=== PATIENT | male | born 1935 | race Caucasian/White ===

== ENCOUNTER → 2020-09-19 | Outpatient (CLI) | payer MEDICARE ==
--- NOTE | 2020-09-19 15:52 | Diagnostic Imaging Report ---
PROCEDURE: MR imaging of the brain without contrast. TECHNIQUE: Multiplanar, multisequence MR imaging of the brain was performed without contrast. INDICATION: Slurred speech. Left-sided paralysis. COMPARISON: None. FINDINGS: Advanced generalized cerebral and cerebellar parenchymal volume loss. Moderate to advanced nonspecific T2 hyperintensities in the supratentorial white matter. Small lacunar infarct in the deep white matter of the right frontal lobe. No restricted water diffusion. No hemosiderin deposition or evidence of intracranial hemorrhage. Normal morphology including the major midline structures, sella, posterior fossa and cerebellar pontine angle. Postoperative changes in the right globe. Normal intracranial flow voids. No hydrocephalus or extra-axial fluid collections. The paranasal sinuses and mastoids appear clear. Normal bone marrow signal. IMPRESSION: 1. No acute intracranial MRI findings. Specifically, no evidence of acute infarction. 2. 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 3. 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 Dictated by: Dictated on workstation # [id number]
== END ==
LOC: RAD 14:20
PROVIDERS: ATTEND Nurse Practitioner Family
DX: I69.354 Hemiplegia and hemiparesis following cerebral infarction affecting left non-dominant side (principal); R93.0 Abnormal findings on diagnostic imaging of skull and head, not elsewhere classified
CPT/HCPCS: 70551

== ENCOUNTER 2022-04-17 07:53 | Emergency (ER) | payer MEDICARE ==
[~2022-04-17] VITALS: Ht 177 cm; Wt 95.0 kg
[2022-04-17] MEDS ORDERED: LACTATED RINGERS 1,000 ML IV STA (08:14)
--- NOTE | 2022-04-17 08:14 | ED Abdominal Pain ---
General Chief Complaint: Abdominal/GI Problems Stated Complaint: ABD PAIN Nursing Triage Note: Patient has been brought to ER by EMS with cc of lower right abd/groin pain, he has a lump in his right groin that has been there for a long time. This morning the pain is worse. He called EMS for transport to ER for evaluation. Source of Information: Patient, EMS, Family Exam Limitations: No Limitations History of Present Illness Date Seen by Provider: April 17, 2022 Time Seen by Provider: 07:56 Initial Comments 86-year-old male with past medical history of memory impairment and prior inguinal hernia on the left coming in via EMS from home due to right inguinal hernia with increasing pain. The left was repaired years ago by Dr. Farnsworth at a [facility]. His spouse recalls this 1 on the right been present for over a year. He followed up with Dr. Farnsworth who said he does not need surgery unless it begins hurting him. Intermittently its cause mild pain, but he woke up this morning with more severe pain, constant, aching in his lower abdomen. No nausea or vomiting associated with it. Him or his cannot recall the last time he had a bowel movement. He does not believe he is passing flatus, but he is unsure. He last ate last night. He has not had anything for pain as of yet. He is otherwise denying any chest pain, shortness of breath, diarrhea, weakness, numbness, dysuria, rash, or any other concerns. Allergies and Home Medications Allergies Coded Allergies: gabapentin (Verified Allergy, Unknown, 04/17/22) Patient Home Medication List Home Medication List Reviewed: Yes Review of Systems Review of Systems Constitutional: No chills, No fever EENTM: No Blurred Vision Respiratory: Denies Cough Cardiovascular: Denies Chest Pain Gastrointestinal: Abdominal Pain; Denies Diarrhea, Denies Nausea Genitourinary: No Symptoms Reported Musculoskeletal: no symptoms reported Skin: no symptoms reported Psychiatric/Neurological: No Symptoms Reported Endocrine: No Symptoms Reported Hematologic/Lymphatic: No Symptoms Reported All Other Systems Reviewed Negative Unless Noted: Yes Past Qdrmamb-Zxwdgi-Wnauqu Hx Patient Social History Tobacco Use?: No Smoking Status: Former Smoker Use of E-Cig and/or Vaping dev: No Substance use?: No Alcohol Use?: No Past Medical History Surgeries: Yes (hernia repair on the left inguinal) Physical Exam Vital Signs Vital Signs - First Documented 04/17/22 08:00 Temp 35.9 Pulse 70 Resp 18 B/P (MAP) 182/111 (134) Pulse Ox 99 Capillary Refill : Height/Weight/BMI Height: '" Weight: lbs. oz. kg; 30.00 BMI Method: General Appearance: WD/WN, no apparent distress HEENT: PERRL/EOMI, normal ENT inspection, pharynx normal Neck: non-tender, full range of motion, supple, normal inspection Respiratory: chest non-tender, lungs clear, normal breath sounds, no respiratory distress, no accessory muscle use Cardiovascular: regular rate, rhythm, no edema, no murmur Gastrointestinal: normal bowel sounds; No distended, No guarding, No rebound; tenderness (lower abdomen), hernia (R inguinal, incarcerated but does not appear to be strangulated with normal skin color) Extremities: normal range of motion, non-tender, normal inspection, no pedal edema, no calf tenderness, normal capillary refill Back: normal inspection, no CVA tenderness, no vertebral tenderness Neurologic/Psychiatric: no motor/sensory deficits, alert, normal mood/affect, disoriented x 3 (to time) Skin: normal color, warm/dry Lymphatic: no adenopathy Focused Exam Lactate Level 04/17/22 08:11: Lactic Acid Level 1.51 Lactic Acid Level Laboratory Tests Test 04/17/22 08:11 Lactic Acid Level 1.51 MMOL/L (0.50-2.00) Progress/Results/Core Measures Results/Orders Lab Results Laboratory Tests Test 04/17/22 08:11 Range/Units White Blood Count 7.9 4.3-11.0 10^3/uL Red Blood Count 5.14 4.30-5.52 10^6/uL Hemoglobin 16.0 13.3-17.7 g/dL Hematocrit 45 40-54 % Mean Corpuscular Volume 88 80-99 fL Mean Corpuscular Hemoglobin 31 25-34 pg Mean Corpuscular Hemoglobin Concent 35 32-36 g/dL Red Cell Distribution Width 12.3 10.0-14.5 % Platelet Count 193 130-400 10^3/uL Mean Platelet Volume 10.1 9.0-12.2 fL Immature Granulocyte % (Auto) 0 % Neutrophils (%) (Auto) 37 L 42-75 % Lymphocytes (%) (Auto) 53 H 12-44 % Monocytes (%) (Auto) 7 0-12 % Eosinophils (%) (Auto) 2 0-10 % Basophils (%) (Auto) 0 0-10 % Neutrophils # (Auto) 2.9 1.8-7.8 10^3/uL Lymphocytes # (Auto) 4.2 H 1.0-4.0 10^3/uL Monocytes # (Auto) 0.6 0.0-1.0 10^3/uL Eosinophils # (Auto) 0.2 0.0-0.3 10^3/uL Basophils # (Auto) 0.0 0.0-0.1 10^3/uL Immature Granulocyte # (Auto) 0.0 0.0-0.1 10^3/uL Sodium Level 136 135-145 MMOL/L Potassium Level 4.2 3.6-5.0 MMOL/L Chloride Level 103 98-107 MMOL/L Carbon Dioxide Level 23 21-32 MMOL/L Anion Gap 10 5-14 MMOL/L Blood Urea Nitrogen 17 7-18 MG/DL Creatinine 1.06 0.60-1.30 MG/DL Estimat Glomerular Filtration Rate 68 BUN/Creatinine Ratio 16 Glucose Level 99 70-105 MG/DL Lactic Acid Level 1.51 0.50-2.00 MMOL/L Calcium Level 9.2 8.5-10.1 MG/DL Corrected Calcium 9.3 8.5-10.1 MG/DL Total Bilirubin 1.3 H 0.1-1.0 MG/DL Aspartate Amino Transf (AST/SGOT) 32 5-34 U/L Alanine Aminotransferase (ALT/SGPT) 34 0-55 U/L Alkaline Phosphatase 99 40-136 U/L Total Protein 7.7 6.4-8.2 GM/DL Albumin 3.9 3.2-4.5 GM/DL Lipase 22 8-78 U/L My Orders Orders - ANSELMO HORTON MD Cbc With Automated Diff (04/17/22 08:14) Comprehensive Metabolic Panel (04/17/22 08:14) Lactic Acid Analyzer (04/17/22 08:14) Lipase (04/17/22 08:14) Ua Culture If Indicated (04/17/22 08:14) Ct Abdomen/Pelvis W (04/17/22 08:14) Lactated Ringers (Lr 1000 Ml Iv Solution (04/17/22 08:14) Ondansetron Injection (Zofran Injectio (04/17/22 08:15) Iohexol Injection (Omnipaque 350 Mg/Ml 1 (04/17/22 08:45) Received Contrast (Hold Metformin- Contr (04/17/22 08:45) Sodium Chloride Flush (Catheter Flush Sy (04/17/22 08:45) Ns (Ivpb) (Sodium Chloride 0.9% Ivpb Bag (04/17/22 08:45) Medications Given in ED Current Medications Medications Dose Ordered Sig/Shy Route Start Time Stop Time Status Last Admin Dose Admin Iohexol 100 ml ONCE ONCE IV 04/17/22 08:45 04/17/22 08:46 DC 04/17/22 09:20 100 ML Ondansetron HCl 4 mg ONCE ONCE IVP 04/17/22 08:15 04/17/22 08:17 DC 04/17/22 08:27 4 MG Sodium Chloride 10 ml NEEDED PRN IV 04/17/22 08:45 04/17/22 09:20 10 ML Sodium Chloride 100 ml ONCE ONCE IV 04/17/22 08:45 04/17/22 08:46 DC 04/17/22 09:20 100 ML Vital Signs/I&O 04/17/22 08:00 Temp 35.9 Pulse 70 Resp 18 B/P (MAP) 182/111 (134) Pulse Ox 99 Blood Pressure Mean: 134 Progress Progress Note : Progress Note 86-year-old male with above history coming in due to right lower abdominal pain. Physical exam with an inguinal hernia that is incarcerated on exam. Attempted to reduce it with no success. ABCs were intact and vital stable on presentation. IV was placed and basic labs reassuring including a normal white blood cell count, normal creatinine, normal lactic acid, and normal LFTs. CT abdomen pelvis ordered to assess for obstruction given his lack of flatus and bowel movements recently. This was concerning for at least a partial bowel obstruction. I discussed this with the family, and they wanted me to discuss the case with his surgeon, Dr. Farnsworth. I contacted him at [facility], and he accepted him for transfer for further evaluation and management. Departure Impression Primary Impression: Partial small bowel obstruction Additional Impression: Incarcerated hernia Disposition: XF SHT-TRM HOSP Condition: Stable Admissions Decision to Admit/Date: April 17, 2022 Time/Decision to Admit Time: 09:45 Transfer Transfer Reason: Patient preference (continuity of care with his surgeon that has done prior hernia repair) Time Spoke to Accepting Phy: 09:45 Transfer Progress Notes Patient accepted by Dr. Farnsworth for ER to ER transfer where he will likely go to the OR Transfer Time: 10:10 Transfer Facility: [facility] Method of Transfer: Private Vehicle Departure-Patient Inst. Referrals: NO,LOCAL PHYSICIAN (PCP/Family) Primary Care Physician ANSELMO HORTON MD April 17, 2022 08:14
[2022-04-17] MEDS ORDERED: ONDANSETRON 4 MG/2 ML (SDV) Z0FRAN IVP ONE (08:15)
[2022-04-17 08:22] LABS: BASOPHILS % (AUTO) 0 % (0-10); EOSINOPHILS # (AUTO) 0.2 10^3/uL (0.0-0.3); EOSINOPHILS % (AUTO) 2 % (0-10); HEMATOCRIT 45 % (40-54); LYMPHOCYTES # (AUTO) 4.2 10^3/uL (1.0-4.0); LYMPHOCYTES % (AUTO) 53 % (12-44); MEAN CORPUSCULAR HEMOGLOBIN 31 pg (25-34); MEAN CORPUSCULAR HGB CONC 35 g/dL (32-36); MEAN CORPUSCULAR VOLUME 88 fL (80-99); MEAN PLATELET VOLUME 10.1 fL (9.0-12.2); MONOCYTES # (AUTO) 0.6 10^3/uL (0.0-1.0); MONOCYTES % (AUTO) 7 % (0-12); NEUTROPHILS # (AUTO) 2.9 10^3/uL (1.8-7.8); NEUTROPHILS % (AUTO) 37 % (42-75); PLATELET COUNT 193 10^3/uL (130-400); WHITE BLOOD COUNT 7.9 10^3/uL (4.3-11.0)
[2022-04-17 08:40] LABS: CREATININE SERUM 1.06 MG/DL (0.60-1.30); POTASSIUM 4.2 MMOL/L (3.6-5.0)
[2022-04-17 08:41] LABS: ALBUMIN 3.9 GM/DL (3.2-4.5); BILIRUBIN,TOTAL 1.3 MG/DL (0.1-1.0); CALCIUM 9.2 MG/DL (8.5-10.1); TOTAL PROTEIN 7.7 GM/DL (6.4-8.2)
[2022-04-17] MEDS ORDERED: NS 100 ML (IVPB) BAG IV ONE (08:45)
[2022-04-17] MEDS ORDERED: HOLD METFORMIN - RECEIVED CONTRAST 20 ML VIAL IV SCH (08:45)
[2022-04-17] MEDS ORDERED: CATHETER FLUSH 10 ML SYR IV PRN (08:45)
[2022-04-17] MEDS ORDERED: IOHEXOL 350 MG/ML 100 ML (OMNIPAQUE 350) VIAL IV ONE (08:45)
--- NOTE | 2022-04-17 09:37 | Diagnostic Imaging Report ---
PROCEDURE: CT abdomen and pelvis with contrast. TECHNIQUE: Multiple contiguous axial images were obtained through the abdomen and pelvis after administration of intravenous contrast. Auto Exposure Controls were utilized during the CT exam to meet ALARA standards for radiation dose reduction. All CT scans use one or more of the following dose optimizing techniques: automated exposure control, MA and/or KvP adjustment based on patient size and exam type or iterative reconstruction. INDICATION: Pain and hernia. I have no relevant comparison. FINDINGS: Medial to the right femoral neurovascular bundle is an inguinal hernia with the hernial orifice diameter of 3 cm, through the hernia sac is fat and distal small bowel, small amount of fluid within the hernia sac. This correlates with a transition and small bowel caliber the most distal loops beyond that level are decompressed and proximally there is mild small bowel dilatation with some scattered air-fluid levels, small bowel caliber maximal 2.5 cm in diameter. No pneumatosis. No free gas. There is noninflamed sigmoid diverticulosis. There is a normal appendix. The stomach is nondilated. The lung bases nonacute. A few hepatic cysts simple and benign. Gallbladder, liver and biliary ducts unremarkable. Scattered benign splenic granulomata noted. Spleen size normal. The adrenals negative. Pancreas unremarkable. The atherosclerotic abdominal aorta shows some mild infrarenal fusiform ectasia measuring 2.8 cm maximal. There are bilateral renal cortical cysts, no hydronephrosis. IMPRESSION: 1. A right inguinal hernia likely comprised of small bowel loops, fat as well as some fluid within the hernia sac. It is believed to be at least partially obstructing without viscus perforation or abscess. 2. Normal appendix, noninflamed diverticulosis, unruptured atherosclerotic fusiform, infrarenal aortic ectasia with benign hepatorenal cyst and no acute biliary pathology. 3. Incidentally noted, left chest wall intramuscular benign lipoma. Dictated by: Dictated on workstation # [id number]
[2022-04-17 10:09] VITALS: BP 153/63
== END 2022-04-17 10:26 | disposition short-term general hospital (02) ==
LOC: EDUNIT# 07:53 → ER FS 07:54
DX: K56.600 Partial intestinal obstruction, unspecified as to cause (principal); K46.0 Unspecified abdominal hernia with obstruction, without gangrene; Z87.891 Personal history of nicotine dependence
CPT/HCPCS: 36415; 74177; 80053; 83605; 83690; 85025; Q9967